=== PATIENT | male | born 1960 | race Caucasian/White ===

== ENCOUNTER 2020-10-19 12:21 | Inpatient (IN) | payer MEDICARE ==
[~2020-10-19] VITALS: Ht 180.3 cm; Wt 113.4 kg
[~2020-10-19 12:21] MED LIST: ALPRAZOLAM0.5 MG PO; ASPIR 8181 MG PO; CIALIS20 MG PO; CITALOPRAM HBR40 MG PO; COLACE 100MG C100 MG PO; ELAVIL 25 MG TA25 MG PO; FERROUS SULFAT325 MG PO; FLOMAX 0.4 MG0.4 MG PO; GLUCOPHAGE 500500 MG PO; IMDUR ER TAB 3030 MG PO; LANTUS100 UNIT/1 SQ; LIPITOR TAB 2020 MG PO; NAMENDA10 MG PO; NEURONTIN 400400 MG PO; NITROSTAT 0.40.4 MG SL; NOVOLOG100 UNIT/1 SQ; OMEPRAZOLE40 MG PO; OXYCODONE HCL10 MG PO; PRAVASTATIN SOD10 MG PO; PROAIR HFA8.5 GM INH; TIZANIDINE HCL4 M1 PO; TOPROL XL 50 MG50 MG PO; ULTRAM50 MG PO; UNITHROID200 MCG PO; VICTOZA 3-0.6 MG/0.1 SQ; VITAMIN D31000 UNIT PO; VOLTAREN100 GM TP; ZANTAC 150 MG150 MG PO
[2020-10-19 13:39] LABS: HEMOGLOBIN 12.5 gm/dl (14.0-17.5); RED BLOOD COUNT 4.37 M/UL (4.20-5.50); WHITE BLOOD COUNT 5.8 K/UL (4.5-11.0)
[2020-10-19] MEDS ORDERED: PRAVASTATIN SOD10 MG PO (19:33)
[2020-10-19] MEDS ORDERED: TOUJEO MAX300 UNIT/1 SQ (19:36)
[2020-10-19] MEDS ORDERED: XIGDUO XR 5 MG1 EAC1 PO (19:44)
[2020-10-20 02:58] LABS: HEMOGLOBIN 11.7 gm/dl (14.0-17.5); RED BLOOD COUNT 4.19 M/UL (4.20-5.50); WHITE BLOOD COUNT 5.5 K/UL (4.5-11.0)
[2020-10-21 04:44] LABS: HEMOGLOBIN 11.9 gm/dl (14.0-17.5); RED BLOOD COUNT 4.22 M/UL (4.20-5.50); WHITE BLOOD COUNT 5.4 K/UL (4.5-11.0)
[2020-10-21 07:11] LABS: HBSAG SCREEN Negative (Negative); HEP A AB, IGM Negative (Negative); HEP B CORE AB, IGM Negative (Negative); HEP C VIRUS AB 0.1 (0.0-0.9)
--- NOTE | 2020-10-21 09:44 | NUR ---
AT 0944 ON 10/21/20 PT LEFT FLOOR WITH APPROPRAITE STAFF FOR EGD PROCEDURE
--- NOTE | 2020-10-21 10:47 | NUR ---
PT ARRIVED BACK ONTO FLOOR FROM PROCEDURE AT 1030 ON 10/21/20.
--- NOTE | 2020-10-21 18:09 | NUR ---
ATTEMPTED TO CALL PT ON BEHALF OF DR. BORGES FOR POTENTIAL MEDICATION REACTION BETWEEN SILDENAFIL AND NITRO IF TAKEN WITHIN 24 HOUR PERIOD. PT WAS CALLED AT 1637, 1750, AND 1752 WITH NO ABILITY TO REACH PT. WILL KEEP ATTEMPTING TO REACH
--- NOTE | 2020-10-21 18:16 | NUR ---
PT RETURNED PHONE CALL ABOUT NITRO AND SILDENAFIL. PT STATED THAT THEY WERE AWARE TO NOT TAKE MEDS WITHIN [address] BORGES MADE AWARE THAT PT RETURNED PHONE CALL AND IS AWARE
== END 2020-10-21 16:40 | disposition home or self-care (01) | DRG 74 ==
LOC: ER1 12:21 → MED SURG 4 17:05 → CDU 17:05 → MED SURG 4 18:59
PROVIDERS: Internal Medicine Gastroenterology; Physician Assistant; ADMIT Internal Medicine
PROC: 0DB78ZX Excision of Stomach, Pylorus, Via Natural or Artificial Opening Endoscopic, Diagnostic (ICD-10-PCS; principal; 2020-10-21 12:30)
DX: E11.42 Type 2 diabetes mellitus with diabetic polyneuropathy (principal); N17.9 Acute kidney failure, unspecified; K76.6 Portal hypertension; I69.354 Hemiplegia and hemiparesis following cerebral infarction affecting left non-dominant side; G47.33 Obstructive sleep apnea (adult) (pediatric); K31.89 Other diseases of stomach and duodenum; Z20.822 Contact with and (suspected) exposure to COVID-19; I25.10 Atherosclerotic heart disease of native coronary artery without angina pectoris; E78.5 Hyperlipidemia, unspecified; N18.30 Chronic kidney disease, stage 3 unspecified; K75.81 Nonalcoholic steatohepatitis (NASH); K74.60 Unspecified cirrhosis of liver; D69.6 Thrombocytopenia, unspecified; E66.9 Obesity, unspecified; K22.8 Other specified diseases of esophagus; I12.9 Hypertensive chronic kidney disease with stage 1 through stage 4 chronic kidney disease, or unspecified chronic kidney disease; E86.0 Dehydration; Z85.850 Personal history of malignant neoplasm of thyroid; Z90.49 Acquired absence of other specified parts of digestive tract; Z79.82 Long term (current) use of aspirin; Z79.4 Long term (current) use of insulin; Z88.2 Allergy status to sulfonamides; Z88.8 Allergy status to other drugs, medicaments and biological substances
CPT/HCPCS: ECHO; 0240U; 36415; 36600; 70450; 70551; 71045; 71260; 80048; 80053; 80074; 80076; 80202; 80307; 81001; 82009; 82550; 82553; 82803; 82962; 83605; 83874; 84484; 85025; 87040; 87081; 87880; 92610; 93005; 93306; 93880; 96365; 96366; 96375; 97161; 97165; 99285; C9113; J0692; J0696; J2250; J2405; J3010; J3370; J7030; J7070; Q9967

== ENCOUNTER → 2021-01-28 | Outpatient (CLI) | payer MEDICARE ==
[~2021-01-28] MED LIST changes: +TOUJEO MAX300 UNIT/1 SQ; +XIGDUO XR 5 MG1 EAC1 PO
== END ==
LOC: LAB 11:52
DX: R79.89 Other specified abnormal findings of blood chemistry (principal)
CPT/HCPCS: 82140